=== PATIENT | male | born 1970 | race Caucasian/White ===

== ENCOUNTER 2021-02-12 11:58 | Day surgery (SDC) | payer OTHER ==
[~2021-02-12] VITALS: Ht 175.3 cm; Wt 71.6 kg
--- NOTE | ~2021-02-12 | OR ---
[facility] [address] [facility] [place] [address] Draft DATE OF OPERATION: 02/12/2021 SURGEON: Elgin Valera MD PREOPERATIVE DIAGNOSIS: Colon screening. POSTOPERATIVE DIAGNOSIS: Normal colon to cecum. PROCEDURE: Total colonoscopy to cecum. ANESTHESIA: Intravenous sedation, fentanyl 150 mcg and Versed 5 mg. INDICATION: This 50-year-old white man is a patient of Dr. Maira Rocha. He is a [employer]. He is in generally quite excellent health. He has no family history of colon cancer and no symptoms of bleeding, diarrhea or constipation. He is referred for consideration of colonoscopy on the basis of his age. He understands the risks of bleeding, infection, and perforation and wished to proceed. FINDINGS: The prep was quite excellent. Complete colonoscopy was undertaken to the cecum without question. He had no evidence of polyps, diverticular formation, colitis, or cancer. DESCRIPTION OF PROCEDURE: The patient was brought to the endoscopy suite and placed in lateral decubitus position, given intravenous sedation to the point of slurred speech and nystagmus. Digital rectal examination was normal. An Olympus video colonoscope was passed in the rectum and manipulated throughout the colon ultimately intubating the cecum itself. The ileocecal valve and appendiceal orifice were normal. The scope was withdrawn and examination throughout showed no sign of abnormality specifically no polyps, diverticular formation, colitis, or cancer. Retroflex view was normal as well. The scope was removed and the patient was taken to the recovery room in good condition. CONCLUDING DIAGNOSIS: PATIENT NAME: SEMAJ TREJO OPERATIVE REPORT DATE OF : 66 REPORT #: [id number] PHYSICIAN: ELGIN VALERA MD PCP: MAIRA ROCHA MD REPORT IS CONFIDENTIAL AND NOT TO BE RELEASED WITHOUT AUTHORIZATION [facility] [address] [place] [address] [place] [address] Draft Normal colon to cecum. PLAN: Recommend a repeat colonoscopy in 10 years based on current guidelines, sooner if he should develop symptoms of persistent diarrhea, constipation, or bleeding. MD KARINA Callahan/PORTER /[id number] cc: Maira Rocha MD Copies: ~ PATIENT NAME: SEMAJ TREJO OPERATIVE REPORT DATE OF : 66 REPORT #: [id number] PHYSICIAN: ELGIN VALERA MD PCP: MAIRA ROCHA MD REPORT IS CONFIDENTIAL AND NOT TO BE RELEASED WITHOUT AUTHORIZATION
--- NOTE | 2021-02-12 14:21 | NUR ---
02/12/21 1421 Lucita Ramon 1418-PATIENT AWAKE ARRIVED TO PACU ON 2L NC RR EVEN. PATIENT LAYING LEFT LATERAL ABDOMEN SOFT. DENIES PAIN OR NAUSEA. REPOSITIONED SELF IN BED. ENCOURAGED TO PASS GAS 1420-PLACED ON RA 100% RR EVEN.
== END 2021-02-12 14:48 | disposition home or self-care (01) ==
LOC: OPS 11:58 → DS 11:59 → OPS 13:00
PROVIDERS: ATTEND Surgery
PROC: 0DJD8ZZ Inspection of Lower Intestinal Tract, Via Natural or Artificial Opening Endoscopic (ICD-10-PCS; principal; 2021-02-12 13:00)
DX: Z12.11 Encounter for screening for malignant neoplasm of colon (principal); C44.310 Basal cell carcinoma of skin of unspecified parts of face
CPT/HCPCS: 99153; G0500; J2250; J3010; J7121